=== PATIENT | female | born 1965 | race Hispanic/Latino ===

== ENCOUNTER 2017-03-08 22:51 | Emergency (ER) | payer SELFPAY ==
[~2017-03-08] VITALS: Ht 160 cm; Wt 66.2 kg
[~2017-03-08 22:51] MED LIST: AMOXICILLIN500 MG PO; ANTIVERT12.5 MG PO; ATENOL/CHLOR1 TA2 PO; AUGMENTIN875TAB OR; BIRTH CONTROL PILL PO; BIRTH CONTROL PILLS; BP MEDICINE PO; CIPRODEX1 ML AD; CIPROFLOXACN500 MG PO; CLARITIN10 M1 PO; CYCLOBENZAPR10 MG PO; DOMBORO OTIC15 ML AD; FLEXERIL5 M1 PO; HYDROCHLOROT12.5 M1 PO; HYDROCHLOROT12.5 MG PO; HYDROCHLOROTH12.5 MG OR; LEVAQUIN500 MG PO; LISINOP/HCTZ1 TAB PO; LORTAB 1010 MG PO; LOVASTATIN10 M1 PO; MEDDOSEPAK PO; NAPROSYN500 MG PO; OMEPRAZOLE20 MG PO; PRAVASTATIN SOD10 MG PO; PRAVASTATIN10 MG PO; PROMETHAZINE25 MG RE; TENORETIC 50 501 TAB PO; TRIAMCINOLON0.11 EX; ZESTRIL/PRINIV2.5 MG PO
[2017-03-08 23:41] LABS: URINE BILIRUBIN - DIPSTICK NEGATIVE (NEGATIVE); URINE BLOOD DIPSTICK SMALL (NEGATIVE); URINE CLARITY SLIGHT CLOUDY; URINE COLOR YELLOW; URINE GLUCOSE - DIPSTICK NEGATIVE (NEGATIVE); URINE KETONE TRACE mg/dL (NEGATIVE); URINE NITRITE - DIPSTICK NEGATIVE (Negative); URINE PROTEIN - DIPSTICK NEGATIVE (NEG-TRACE); URINE UROBILINOGEN - DIPSTICK 0.2 E.U./dL (0.2)
[2017-03-08 23:46] LABS: URINE LEUK ESTERASE SMALL (NEGATIVE)
[2017-03-08 23:47] LABS: URINE BACTERIA FEW hpf; URINE MUCUS FEW hpf (NONE-FEW); URINE RBC 0-2 RBC/hpf (0-5); URINE SQUAMOUS EPITHELIAL CELL MODERATE EPI/hpf (0-FEW)
[2017-03-09 00:02] LABS: HEMATOCRIT 39.4 % (37.0-47.0); HEMOGLOBIN 13.2 g/dl (12.0-16.0); IMMATURE GRANULOCYTES 0.5 % (0.0-1.0); MEAN CELL VOLUME 100.8 fL CALC (80.0-100.0); MEAN CORPUSCULAR HGB 33.8 pG CALC (26.0-32.0); MEAN CORPUSCULAR HGB CONC 33.5 g/L CALC (32.0-36.0); NEUT# 6.39 thou/uL (2.00-7.15); RED BLOOD COUNT 3.91 mill/uL (4.20-5.60); RED CELL DISTRI WIDTH 11.9 % (11.5-15.5)
[2017-03-09 00:22] LABS: ALBUMIN 4.7 g/dL (3.2-5.0); ALKALINE PHOSPHATASE 179 u/l (38-126); ANION GAP 18 (6-22 (CALC)); BUN 10 mg/dL (7-17); BUN/CREATININE RATIO 14 (12-20 (CALC)); CALCIUM 9.6 mg/dL (8.4-10.2); CARBON DIOXIDE 26 mmol/l (22-30); CHLORIDE 97 mmol/l (95-108); CREATININE 0.7 mg/dL (0.5-1.0); GFR > 60 ML/MIN (>=60 (CALC)); GFR FOR AFR.AMER. > 60 ML/MIN (>=60 (CALC)); GLUCOSE 133 mg/dL (65-105); LIPASE 49 u/l (23-300); POTASSIUM 3.7 mmol/l (3.5-5.1); SGOT/AST 83 u/l (14-36); SGPT/ALT 78 u/l (9-52); SODIUM 138 mmol/l (137-146); TOTAL PROTEIN 9.2 g/dL (6.3-8.2)
[2017-03-09 00:33] LABS: MYOGLOBIN 33 ng/mL (0 - 62)
[2017-03-09] MEDS ORDERED: ZESTRIL10 M1 PO (00:33)
[2017-03-09] MEDS ORDERED: CIPROFLOXACN500 MG PO (01:10)
[2017-03-09] MEDS ORDERED: MOTRIN800 MG PO (01:10)
[2017-03-09 01:30] VITALS: BP 116/72
--- NOTE | 2017-03-10 12:44 | NUR ---
ED CULTURE PHARMACY MEDICATION FOLLOW-UP Patient was seen in ED on 03/09/17 Cultures were reviewed from: Urine Patient was discharged with Rx for: CIPRO C&S report came back with No Growth PLAN: Recommended: No Change Comment:
== END 2017-03-09 01:52 | disposition home or self-care (01) | DRG 690 ==
LOC: ED 22:51
PROVIDERS: Emergency Medicine
DX: N12 Tubulo-interstitial nephritis, not specified as acute or chronic (principal); I10 Essential (primary) hypertension; K21.9 Gastro-esophageal reflux disease without esophagitis

== ENCOUNTER 2019-07-27 05:08 | Emergency (ER) | payer BC ==
[~2019-07-27] VITALS: Ht 160 cm; Wt 70.0 kg
[~2019-07-27 05:08] MED LIST changes: +MOTRIN800 MG PO; +ZESTRIL10 M1 PO
[2019-07-27] MEDS ORDERED: MOTRIN800 MG PO (06:57)
[2019-07-27] MEDS ORDERED: LORTAB 5/3255 MG PO (06:57)
[2019-07-27 07:59] VITALS: BP 171/86
== END 2019-07-27 07:39 | disposition home or self-care (01) | DRG 563 ==
LOC: ED 05:08
DX: S82.001A Unspecified fracture of right patella, initial encounter for closed fracture (principal); W01.0XXA Fall on same level from slipping, tripping and stumbling without subsequent striking against object, initial encounter; Y92.000 Kitchen of unspecified non-institutional (private) residence as the place of occurrence of the external cause
CPT/HCPCS: L1830